=== PATIENT | female | born 1985 | race Caucasian/White ===

== ENCOUNTER 2019-11-07 16:31 | Emergency (ER) | payer OTHER, SELFPAY ==
--- NOTE | 2019-11-07 18:02 | RAD ---
PELVIC RADIOGRAPH: 11/07/19 PROVIDED CLINICAL HISTORY: Evidence for foreign body. FINDINGS/IMPRESSION: There is no evidence for fracture or other acute osseous abnormality. Alignment appears anatomic. Allie nt spaces appear preserved. There is a rounded area of heterogeneous but predominantly air density ov erlying the central low pelvis, the etiology and significance of which is uncertain. This could refle ct foreign body or stool within the rectum. POS: [facility]
== END 2019-11-07 18:32 ==
LOC: ERS 16:31
DX: Z02.89 Encounter for other administrative examinations (principal); F41.9 Anxiety disorder, unspecified; F32.9 Major depressive disorder, single episode, unspecified; Z79.899 Other long term (current) drug therapy
CPT/HCPCS: 72170

== ENCOUNTER 2019-11-07 22:22 | Emergency (ER) | payer SELFPAY | END 2019-11-08 00:15 | LOC: ERS 22:22 | DX: Z02.89 Encounter for other administrative examinations (principal); F41.9 Anxiety disorder, unspecified; F32.9 Major depressive disorder, single episode, unspecified; Z79.899 Other long term (current) drug therapy | CPT/HCPCS: 99283 ==

== ENCOUNTER 2021-10-11 10:07 | Emergency (ER) | payer SELFPAY | END 2021-10-11 11:14 | disposition home or self-care (01) | LOC: ERS 10:07 | DX: J02.8 Acute pharyngitis due to other specified organisms (principal); J32.9 Chronic sinusitis, unspecified; Z79.899 Other long term (current) drug therapy | CPT/HCPCS: 99283 ==

== ENCOUNTER 2023-07-23 11:32 | Emergency (ER) | payer BC ==
[2023-07-23] MEDS ORDERED: Dicyclomine 20 MG/2 ML VIAL ONE ×2 (12:35→12:36)
[2023-07-23 13:36] LABS: SARS-CoV-2 NAA Rapid Test Not Detected (NotDetected)
== END 2023-07-23 14:00 | disposition home or self-care (01) ==
LOC: ERS 11:32
DX: B34.9 Viral infection, unspecified (principal); F17.290 Nicotine dependence, other tobacco product, uncomplicated; Z20.822 Contact with and (suspected) exposure to COVID-19
CPT/HCPCS: 96372; 99283